=== PATIENT | male | born 1970 | race Caucasian/White ===

== ENCOUNTER 2017-11-14 09:05 | Inpatient (IN) | payer OTHER ==
[~2017-11-14] VITALS: Ht 165.1 cm; Wt 101.7 kg
[2017-11-14 10:45] LABS: CALCIUM 8.5 mg/dL (8.5-10.1); CARBON DIOXIDE 27.7 mmol/L (21-32); CHLORIDE SERUM 104 mmol/L (98-107); CREATININE SERUM 1.1 mg/dL (0.7-1.3); GFR1 > 60 mL/min; GLUCOSE SERUM 135 mg/dL (74-106); POTASSIUM SERUM 3.6 mmol/L (3.5-5.1); SODIUM SERUM 140 mmol/L (136-145)
[2017-11-14 10:46] LABS: BASOPHIL % 0.5 % (0-2); PLATELET COUNT 245 x10^3mcL (130-400); RED CELL DISTRIBUTION WIDTH 13.5 % (11.5-14.5)
[2017-11-14 10:50] LABS: ALKALINE PHOSPHATASE 89 U/L (46-116); ALT/SGPT 38 U/L (16-63); AST/SGOT 22 U/L (15-37); BILIRUBIN TOTAL 0.31 mg/dL (0.20-1.00); TOTAL PROTEIN, SERUM 6.4 g/dL (6.4-8.2)
[2017-11-14 10:54] LABS: ALBUMIN 3.2 g/dL (3.4-5.0)
[2017-11-14 12:58] VITALS: BP 155/90
[2017-11-14 14:22] LABS: MAGNESIUM 2.1 mg/dL (1.8-2.4); PHOSPHOROUS 2.7 mg/dL (2.5-4.9)
[2017-11-14] MEDS ORDERED: SYNTHROID0.175 MG PO (14:25)
[2017-11-14] MEDS ORDERED: LOT20 PO (14:25)
[2017-11-14] MEDS ORDERED: PRILOSEC OTC20 M1 PO (14:26)
[2017-11-14 14:27] LABS: T3 TOTAL 1.27 ng/mL
[2017-11-14 14:33] LABS: CHOLESTEROL/HDL RATIO 6.4
[2017-11-14 14:36] LABS: FREE T4 1.15 ng/dL (0.76-1.46); FREE THYROXINE INDEX 3.1 ug/dL (1.4-4.5)
[2017-11-14 17:28] VITALS: BP 128/81
[2017-11-14 17:53] LABS: UA SPECIFIC GRAVITY 1.025 (1.005-1.035); microscopic required? YES; urine erythrocyte TRACE (NEGATIVE)
[2017-11-14 18:03] LABS: AMPHETAMINE QUAL UR NONE DETECTED (NEG <=1000)
[2017-11-14 20:56] VITALS: BP 116/74
[2017-11-15 05:36] VITALS: BP 121/83
[2017-11-15 06:59] LABS: CALCIUM 8.7 mg/dL (8.5-10.1); CARBON DIOXIDE 28.9 mmol/L (21-32); CHLORIDE SERUM 105 mmol/L (98-107); CREATININE SERUM 1.1 mg/dL (0.7-1.3); GFR1 > 60 mL/min; GLUCOSE SERUM 108 mg/dL (74-106); POTASSIUM SERUM 4.1 mmol/L (3.5-5.1); SODIUM SERUM 141 mmol/L (136-145)
[2017-11-15 07:28] LABS: BASOPHIL % 0.5 % (0-2); PLATELET COUNT 231 x10^3mcL (130-400); RED CELL DISTRIBUTION WIDTH 14.3 % (11.5-14.5)
[2017-11-15 09:55] VITALS: BP 127/90
[2017-11-15] MEDS ORDERED: ECO81 PO (13:41)
[2017-11-15] MEDS ORDERED: LIPI10 PO (13:41)
[2017-11-15 14:31] VITALS: BP 126/78
[2017-11-15 15:32] VITALS: BP 126/78
== END 2017-11-15 16:00 | disposition home or self-care (01) | DRG 313 ==
LOC: ED 09:05 → DU 11:19
PROVIDERS: Emergency Medicine; Family Medicine
DX: R07.89 Other chest pain (principal); E44.0 Moderate protein-calorie malnutrition; I10 Essential (primary) hypertension; K21.9 Gastro-esophageal reflux disease without esophagitis; E03.9 Hypothyroidism, unspecified; E78.5 Hyperlipidemia, unspecified; Z68.37 Body mass index [BMI] 37.0-37.9, adult
CPT/HCPCS: 83880; 84439; 85378; J2270; J2405; J7030; Q0092